=== PATIENT | female | born 1990 | race Caucasian/White ===

== ENCOUNTER → 2023-02-18 15:02 | Outpatient (BNVA) | payer SELFPAY | PROVIDERS: Visit Provider Nurse Practitioner Family | DX: N92.1 Excessive and frequent menstruation with irregular cycle | CPT/HCPCS: 81025; 85025 ==

== ENCOUNTER 2023-07-21 15:30 | Outpatient (CLI) | payer OTHER, SELFPAY ==
--- NOTE | 2023-07-21 15:49 | XR_ITS ---
WS: [id number] XR hand RT min 3V* [id number] REASON FOR EXAM: Right hand pain FINDINGS: No fracture identified. Joint spaces the right hand are intact and well preserved. No significant soft tissue abnormality. XR/XR hand RT min 3V* [id number] IMPRESSION: No acute abnormality.
== END 2023-07-21 15:31 | disposition home or self-care (01) ==
LOC: RAD 15:37
PROVIDERS: Visit Provider Family Medicine
DX: M79.641 Pain in right hand (principal)
CPT/HCPCS: 73130